=== PATIENT | male | born 1985 | race Asian ===

== ENCOUNTER 2023-03-25 12:21 | Emergency (ER) | payer MEDICAID, SELFPAY ==
[2023-03-25 12:21] VITALS: BP 137/82; PULSE 90; RESP 18; TEMP 37.7; O2SAT 99; BMI 23.5
[2023-03-25] MEDS: ACETAMINOPHEN 500 MG TABLET 1000 MG PO (14:22)
--- NOTE | 2023-03-25 14:26 | ED.NURSE ---
pt refuses eye acuity. states symptoms x a year and he can't see. pt angry about long wait. told dr. becerril he just wants to go home now. trying to call for a ride.
--- NOTE | 2023-03-25 14:27 | ED.GENADULT ---
HPI - General Adult General Date Seen: 03/25/23 Chief complaint: Headache/Migraine Stated complaint: Migraine Time Seen by Provider: 03/25/23 12:53 History of Present Illness HPI narrative: History is limited because this patient is angry is an to the room. He is unwilling to answer some questions and gives very terse answers to others. He says he just wants to go home. His 1st words to me are to ask for a phone so he can call for his ride. After asset down with him he did at least agree to stay to talk with me for a couple of minutes about his headache. He still says he wants to go home without any treatment or workup. Obtainable history is below This is a 37-year-old male with a complex past medical history. He has insulin-dependent type 1 diabetes that was 1st diagnosed when he was 20 years old. It sounds like he has some medical problems from that. I do not know if he has retinopathy or nephropathy or other. He is on NovoLog and Lantus. It is unclear whether not he is taking his meds regularly. It does not sound like he has been checking his sugar every day. When I ask him where his sugar usually runs, he shrugs and gives an invasive answer saying 200s ... 300s. He does not know of his most recent hemoglobin A1c, but he says he has an appointment upcoming in 3 days, on Monday with an strap buckler machine in [facility]. He also has a history of bilateral retinal detachment that occurred about a year ago. 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 He is apparently on drops and pills for pressure in his eyes. He does not know what medicines those are. He says he chronically has a dilated and reactive pupils bilaterally. He cannot see at all of his left eye. He has limited vision in his right eye. His vision is chronically bad since last year. His vision has not changed at all today or with his current headache. Really, he came to the ER today because he has a headache. He says ever since he had his redness detached she gets occasional headaches. He calls them migraines. They happen every few months. There is no clear trigger or pattern to the headaches. He says they usually just go away eventually. His current headache began yesterday morning. His head was throbbing when he woke up. It has been pain in the frontal region of his head. It has been continuous since onset. He did not take anything for the pain at home. He had says the headache is similar to his previous headaches. Nothing different about it. He says ?this is just 1 of my headaches?. When asked specifically he denies any recent fever, neck pain, neck stiffness. No cough. No sore throat. No nasal congestion. No recent head injury. No known carbon monoxide exposure. No new medications. Because of his headache, he called the ambulance morning and was transported here to the ER. Report is blood sugar was 296 per EMS. Related Data Home Medications Medication Instructions Recorded Confirmed acetazolamide 500 mg PO 03/25/23 capsule,extended release atropine 1 % eye drops drp ophthalmic (eye) 03/25/23 Allergies Allergy/AdvReac Type Severity Reaction Status Date / Time No Known Drug Allergies Allergy Verified 03/25/23 12:28 Exam Narrative: Exam Narrative: Constitutional: Appears well-developed and well-nourished. Alert. He is angry and terse, but overall able to answer questions and cognition seems to be intact.. Non toxic. HENT: Head: Atraumatic. No depressed skull fracture, Raccoon Eyes, Loya's sign, or hemotympanum. Face normal. TMs normal Nose: Nose normal. Mouth/Throat: Oral mucosa is clear and moist. no trismus. Pharynx normal. Tonsils symmetric. No tonsillar enlargement, erythema, or exudate. Eyes: Conjunctivae normal. No exophthalmos or enophthalmos. EOM grossly normal, but is not willing to cooperate with comprehensive EOM exam. Left pupil appears to be dilated and nonreactive. Right pupil appears to be somewhat reactive. He says he can see lights and can see my hands moving through his right eye. This is apparently is visual baseline.No scleral icterus. Neck: Normal range of motion. Neck supple. No tracheal deviation present. No meningismus. Cardiovascular: Normal rate, regular rhythm. No gallop. No friction rub. No murmur heard. Symmetric radial artery pulses Pulmonary/Chest: Effort normal. No stridor. No respiratory distress. No wheezes. No rales. No rhonchi . No tenderness. Musculoskeletal: RUE: Normal range of motion. No tenderness. No deformity LUE: Normal range of motion. No tenderness. No deformity RLE: Normal range of motion. No edema. No tenderness. No deformity LLE: Normal range of motion. No edema. No tenderness. No deformity Lymph: No cervical adenopathy. Neurological: Alert and oriented to person, place, and time. Normal strength. CN II-VII intact. No sensory deficit. GCS eye subscore is 4. GCS verbal subscore is 5. GCS motor subscore is 6. Normal coordination Skin: Skin is warm and dry. No rash noted. No pallor. Normal capillary refill. Psychiatric: Normal mood. He is angry and wants to go home. Const: Vital Signs, click to edit/add: Vital Signs - 24 hr 03/25/23 12:21 Temperature 99.9 F H Pulse Rate [Right Pulse Oximeter] 90 Respiratory Rate 18 Blood Pressure [Ri ght Upper Arm] 137/82 Pulse Oximetry 99 Oxygen Delivery Me thod Room Air Course Vital Signs Vital signs: Initial Vital Signs Temperature 99.9 F H 03/25/23 12:21 Temperature Source Temporal Artery Scan 03/25/23 12:21 Pulse Rate 90 03/25/23 12:21 Pulse Rhythm Regular 03/25/23 12:21 Pulse Strength 3+ Normal 03/25/23 12:21 Respiratory Rate 18 03/25/23 12:21 Blood Pressure 137/82 03/25/23 12:21 Blood Pressure Mean 100 03/25/23 12:21 Pulse Oximetry 99 03/25/23 12:21 Oxygen Delivery Method Room Air 03/25/23 12:21 Vital Signs Temperature 99.9 F H 03/25/23 12:21 Pulse Rate 90 03/25/23 12:21 Respiratory Rate 18 03/25/23 12:21 Blood Pressure 137/82 03/25/23 12:21 Pulse Oximetry 99 03/25/23 12:21 Oxygen Delivery Method Room Air 03/25/23 12:21 Temperature 99.9 F H 03/25/23 12:21 Pulse Rate 90 03/25/23 12:21 Respiratory Rate 18 03/25/23 12:21 Blood Pressure 137/82 03/25/23 12:21 Pulse Oximetry 99 03/25/23 12:21 Oxygen Delivery Method Room Air 03/25/23 12:21 Medications Administered Medications: Generic Name Dose Route Start Last Admin Trade Name Freq PRN Reason Stop Dose Admin Acetaminophen 1,000 mg 03/25/23 14:09 03/25/23 14:22 Acetaminophen 500 Mg Tablet PO 03/25/23 14:10 1,000 mg ONCE ONE Administration Medical Decision Making MDM Narrative Medical decision making narrative: 37-year-old gentleman with a history of diabetes (sounds like probably poorly controlled) bilateral retinal detachments with chronic poor vision, who presents to the ER today by EMS for headache. He has a history of headaches similar to this, every few months since last year when his redness detached. He says he has never come to the doctor for his headaches before. I cannot get a clear description from him why he came to the ER today. He says his headache is the same as before, not worse or different. I discussed with him that on my initial evaluation it is not possible to know why his headaches are occurring or why this 1 occurred. Differential is broad including aneurysm, cervical artery dissection, glaucoma, visual disturbance, meningitis, infection such as COVID, carbon monoxide exposure, among others. I recommended workup with CT scan to start, intra-ocular pressure measurement, as well as labs. I also recommended treatment for his headache with intravenous medicines. He is refusing this. He demands to go home. Although I think is making a bad decision, he does have medical decision-making capacity. He is not holdable. Therefore I will allow him to discharge home. This is not my medical advice. I recommend that he stay in the ER for further workup. He is not really willing to explain to me why he is upset or for what reason he demands to go home right away. Discharge Plan Discharge Clinical Impression: Headache Patient Disposition: Home, Self-Care Condition: Stable Instructions: Acute Headache (ED) Additional Instructions: Please come back to the ER right away if you change your mind about further workup or if you want further treatment. Especially, come back right away if you have worsening headache, fever, neck stiffness, vomiting, confusion, or other concerning problems. Please follow-up with your regular doctor by Monday to recheck your blood sugar and with your eye doctor as soon as possible to recheck your vision and your eye pressure. Prescriptions: No Action acetazolamide 500 mg capsule, extended release PO atropine 1 % drops ophthalmic (eye) Stand Alone Forms: [facility] Info Instructions
== END 2023-03-25 14:40 | disposition home or self-care (01) ==
LOC: ED 14:29
PROVIDERS: Emergency Provider Emergency Medicine
DX: R51.9 Headache, unspecified (principal)
CPT/HCPCS: 95992; 99282; 99283; A9270